=== PATIENT | female | born 1955 | race Two or more races ===

== ENCOUNTER 2017-07-13 15:07 | Emergency (ER) | payer MEDICARE, MEDICAID ==
[~2017-07-13] VITALS: Ht 160 cm; Wt 79.4 kg
[~2017-07-13 15:07] MED LIST: DIVA500T4 OR; DOCU100T; FAMO20TA58; HALO5TAB; IBUP800T24; LACO150T; LEVO150T68; LEVO175T31; OLAN20TA13; PREDNISOLONE AC 1% EYE DROP; QUET400T; TOPI25TA84 OR; ZOLP10TA; [UNRECOGNIZED DRUG - CODE]; [UNRECOGNIZED DRUG - OTHER]
[2017-07-13 15:17] VITALS: BP 157/86
[2017-07-13 16:13] LABS: Basophils # (auto) 0.1 uL; Eosinophils # (auto) 0.1 uL; Hematocrit 33.1 % (36.0-46.0); Hemoglobin 11.4 g/dL (12.2-16.2)
[2017-07-13 16:16] LABS: Eosinophils % (auto) 1.8 % (0.0-7.0); Lymphocytes % (auto) 19.6 % (10.0-50.0); Mean Corpuscular Hemoglobin 34.5 pg (28.0-32.0); Mean Corpuscular Hgb Conc. 34.4 g/dL (32.0-36.0); Mean Corpuscular Volume 100.3 fL (80.0-100.0); Monocytes # (auto) 0.4 uL; Monocytes % (auto) 8.7 % (0.0-12.0); Neutrophils # (auto) 3.5 uL; Neutrophils % (auto) 68.9 % (37.0-80.0); Nucleated Red Blood Cells % 0.4 %; Platelet Count (auto) 132 10^3/uL (140-450); Red Cell Distribution Width 13.1 % (11.8-14.3); White Blood Cell 5.1 10^3/uL (4.4-10.8)
[2017-07-13 16:26] LABS: Albumin 2.9 g/dL (3.4-5.0); Anion Gap 9 (5-15); Blood Urea Nitrogen 14 mg/dL (7-18); Carbon Dioxide 22 mmol/L (21-32); Chloride 100 mmol/L (98-107); GFR African American 110 mL/min; GFR Non-African American 91 mL/min; Glucose 155 mg/dL (74-106); Potassium 3.8 mmol/L (3.5-5.1); Sodium 131 mmol/L (136-145)
[2017-07-13 16:31] LABS: Alanine Aminotransferase 24 U/L (13-56); Alkaline Phosphatase 106 U/L (45-117); Aspartate Aminotransferase 21 U/L (15-37); Bilirubin, Total 0.2 mg/dL (0.2-1.0); Total Protein 6.6 g/dL (6.4-8.2)
== END 2017-07-13 17:18 | disposition left against medical advice (07) ==
LOC: ER 15:15
DX: R53.1 Weakness (principal); Z53.21 Procedure and treatment not carried out due to patient leaving prior to being seen by health care provider
CPT/HCPCS: 36415; 80053; 84484; 85025; 93005

== ENCOUNTER 2017-07-16 08:41 | Emergency (ER) | payer MEDICARE, MEDICAID ==
[~2017-07-16] VITALS: Ht 160 cm; Wt 79.4 kg
[2017-07-16 09:14] VITALS: BP 104/67
== END 2017-07-16 09:33 | disposition left against medical advice (07) ==
LOC: ER 08:41
DX: R03.0 Elevated blood-pressure reading, without diagnosis of hypertension (principal); Z53.21 Procedure and treatment not carried out due to patient leaving prior to being seen by health care provider

== ENCOUNTER 2022-05-02 10:37 | Inpatient (IN) | payer MEDICARE, MEDICAID ==
[~2022-05-02] VITALS: Ht 160 cm; Wt 81.4 kg
[~2022-05-02 10:37] MED LIST changes: -DOCU100T; +DOCU100T23; -IBUP800T24; +IBUP800T27; -LACO150T; +LACO150T PO; +LEV150T; -LEVO150T68; -LEVO175T31; +LEVO175T66; +OLAN20TA; -OLAN20TA13; -QUET400T; +QUET400T PO
[2022-05-02 11:22] LABS: Basophils # (auto) 0 10 ^3/uL (0-0.2); Basophils % (auto) 0.2 % (0.0-2.0); Eosinophils # (auto) 0.1 10 ^3/uL (0-0.8); Eosinophils % (auto) 0.8 % (0.0-7.0); Hematocrit 35.2 % (36.0-46.0); Hemoglobin 12.1 g/dL (12.2-16.2); Lymphocytes # (auto) 0.3 10 ^3/uL (0.4-5.4); Mean Corpuscular Hemoglobin 33.6 pg (28.0-32.0); Mean Corpuscular Hgb Conc. 34.4 g/dL (32.0-36.0); Mean Corpuscular Volume 97.6 fL (80.0-100.0); Monocytes # (auto) 0.3 10 ^3/uL (0-1.3); Monocytes % (auto) 3.8 % (0.0-12.0); Neutrophils # (auto) 6.2 10 ^3/uL (1.6-8.6); Neutrophils % (auto) 90.2 % (37.0-80.0); Red Blood Cells 3.61 10^6/uL (4.0-5.20); Red Cell Distribution Width 13.2 % (11.8-14.3); White Blood Cell 6.8 10^3/uL (4.4-10.8)
[2022-05-02 11:40] LABS: Albumin 2.8 g/dL (3.4-5.0); Calcium 8.1 mg/dL (8.5-10.1); Magnesium 2.1 mg/dL (1.6-2.6); Potassium 3.8 mmol/L (3.5-5.1)
[2022-05-02 11:44] LABS: Bilirubin, Total 0.4 mg/dL (0.2-1.0); Total Protein 6.4 g/dL (6.4-8.2)
[2022-05-02] MEDS ORDERED: IOHEXOL 300 MG/ML 100ML BOTTLE IJ ONE (16:43)
[2022-05-02] MEDS: SODIUM CHLORIDE 0.9% 1,000 ML IV SCH (17:32)
[2022-05-02] MEDS ORDERED: NITROGLYCERIN 0.4 MG SL TAB SL PRN (17:45)
[2022-05-02] MEDS ORDERED: MORPHINE SULFATE INJ 2 MG/ml SYRG IV PRN (17:45)
[2022-05-02] MEDS ORDERED: ONDANSETRON HCL 4 MG/2 ML VIAL IV PRN (17:45)
[2022-05-02] MEDS ORDERED: DEXTROSE (50%) 50ML SYRG IV PRN (18:15)
[2022-05-02 18:37] LABS: Cholesterol 127 mg/dL (< 200); HDL Cholesterol 58 mg/dL (40-59); LDL Cholesterol 60 mg/dL (< 100); Triglycerides 85 mg/dL (< 150)
[2022-05-02] MEDS: ACCU-CHEK COMFORT CURVE STRIP VI SCH (23:02)
[2022-05-02] MEDS: metroNIDAZOLE 500MG/100ML 100 ML IV SCH (23:02)
[2022-05-02] MEDS: PANTOPRAZOLE 40 MG/10 ML VIAL INJ IV SCH (23:02)
[2022-05-02] MEDS: InsuLIN REG 1unit/0.01ml Soln (100units/ml) SC SCH (23:03)
[2022-05-02 23:44] VITALS: BP 139/61
[2022-05-03 00:37] VITALS: BP 139/61
[2022-05-03] MEDS: SODIUM CHLORIDE 0.9% 1,000 ML IV SCH ×2 (02:41→09:36)
[2022-05-03 04:40] VITALS: BP 153/67
[2022-05-03] MEDS: ACCU-CHEK COMFORT CURVE STRIP VI SCH ×4 (05:05→23:31)
[2022-05-03] MEDS: InsuLIN REG 1unit/0.01ml Soln (100units/ml) SC SCH ×4 (05:05→23:31)
[2022-05-03 06:03] LABS: Basophils # (auto) 0 10 ^3/uL (0-0.2); Basophils % (auto) 0.3 % (0.0-2.0); Eosinophils # (auto) 0 10 ^3/uL (0-0.8); Hemoglobin 11.3 g/dL (12.2-16.2); Lymphocytes % (auto) 6.8 % (10.0-50.0); Mean Corpuscular Hemoglobin 33.7 pg (28.0-32.0); Mean Corpuscular Hgb Conc. 35.2 g/dL (32.0-36.0); Mean Corpuscular Volume 95.9 fL (80.0-100.0); Monocytes % (auto) 6.8 % (0.0-12.0); Neutrophils # (auto) 12.7 10 ^3/uL (1.6-8.6); Neutrophils % (auto) 86.1 % (37.0-80.0); Red Blood Cells 3.34 10^6/uL (4.0-5.20); Red Cell Distribution Width 13.3 % (11.8-14.3); White Blood Cell 14.8 10^3/uL (4.4-10.8)
[2022-05-03] MEDS: metroNIDAZOLE 500MG/100ML 100 ML IV SCH ×3 (06:27→21:21)
[2022-05-03 09:00] VITALS: BP 150/70
[2022-05-03] MEDS: PANTOPRAZOLE 40 MG/10 ML VIAL INJ IV SCH (09:36)
[2022-05-03] MEDS ORDERED: cefTRIAXone 1GM/50ML D5W 50 ML IV ONE (11:00)
[2022-05-03] MEDS ORDERED: LEVOTHYROXINE SODIUM 25 MCG TAB PO ONE ×2 (11:00→11:30)
[2022-05-03] MEDS ORDERED: LEVOTHYROXINE SODIUM 112 MCG TAB PO ONE (11:30)
[2022-05-03] MEDS ORDERED: TOPI100T68 PO (12:29)
[2022-05-03] MEDS ORDERED: OXCA600T3 PO (12:29)
[2022-05-03] MEDS ORDERED: CHOL20007 PO (12:49)
[2022-05-03] MEDS ORDERED: RISP3TAB41 PO (12:49)
[2022-05-03] MEDS ORDERED: SODIGRA31 PO (12:49)
[2022-05-03] MEDS ORDERED: MAX5OPS OP (12:49)
[2022-05-03] MEDS ORDERED: APIX2.5T PO (12:49)
[2022-05-03] MEDS ORDERED: NETA1DRO OP (12:49)
[2022-05-03] MEDS ORDERED: LEVO25TA6 PO (12:49)
[2022-05-03] MEDS ORDERED: OMEP20TA PO (12:49)
[2022-05-03] MEDS ORDERED: MONT-8 PO (12:49)
[2022-05-03] MEDS ORDERED: FERR-20 PO (12:49)
[2022-05-03] MEDS ORDERED: BRIM1SOL (12:49)
[2022-05-03] MEDS ORDERED: LORA-483 PO (12:49)
[2022-05-03] MEDS ORDERED: ARTISOL13 EACHEYE (12:49)
[2022-05-03] MEDS ORDERED: TRAZ-181 PO (12:49)
[2022-05-03] MEDS ORDERED: DORZ2SOL18 EACHEYE (12:49)
[2022-05-03] MEDS ORDERED: MULTTAB75 PO (12:49)
[2022-05-03] MEDS ORDERED: FLUT0.05 NAS (12:49)
[2022-05-03] MEDS: TOPIRAMATE 25 MG TAB PO SCH ×2 (12:51→21:19)
[2022-05-03 13:00] VITALS: BP 135/58
[2022-05-03 16:44] VITALS: BP 140/66
[2022-05-03 16:51] LABS: Urine Bacteria FEW /hpf (None Seen); Urine Blood 2+ /uL (Negative); Urine Mucus FEW (None Seen); Urine Specific Gravity 1.019 (1.001-1.035); Urine WBC 54 /hpf (0 - 5)
[2022-05-03] MEDS: QUEtiapine FUMARATE 100 MG TAB PO SCH (21:17)
[2022-05-03 22:00] VITALS: BP 134/53
[2022-05-04 05:00] VITALS: BP 115/52
[2022-05-04] MEDS: metroNIDAZOLE 500MG/100ML 100 ML IV SCH ×3 (06:00→21:33)
[2022-05-04] MEDS: InsuLIN REG 1unit/0.01ml Soln (100units/ml) SC SCH ×4 (06:00→23:52)
[2022-05-04] MEDS: ACCU-CHEK COMFORT CURVE STRIP VI SCH ×4 (06:00→23:52)
[2022-05-04] MEDS: LEVOTHYROXINE SODIUM 112 MCG TAB PO SCH (06:40)
[2022-05-04] MEDS: LEVOTHYROXINE SODIUM 25 MCG TAB PO SCH (06:40)
[2022-05-04] MEDS ORDERED: LEVOTHYROXINE SODIUM 25 MCG TAB PO SCH ×2 (07:00→10:00)
[2022-05-04] MEDS: SODIUM CHLORIDE 0.9% 1,000 ML IV SCH ×4 (08:03→19:45)
[2022-05-04] MEDS: cefTRIAXone 1GM/50ML D5W 50 ML IV SCH (09:10)
[2022-05-04] MEDS: TOPIRAMATE 25 MG TAB PO SCH ×2 (09:11→21:34)
[2022-05-04] MEDS: PANTOPRAZOLE 40 MG TAB PO SCH (09:11)
[2022-05-04 09:20] VITALS: BP 137/69
[2022-05-04] MEDS ORDERED: VANCOMYCIN PER PHARMACY 0 MG IV SCH (09:30)
[2022-05-04] MEDS ORDERED: VANCOMYCIN 1GM/250ML 250 ML IV ONE (10:00)
[2022-05-04 12:37] VITALS: BP 131/80
[2022-05-04 16:42] VITALS: BP 133/56
[2022-05-04] MEDS: QUEtiapine FUMARATE 100 MG TAB PO SCH (21:34)
[2022-05-04 22:00] VITALS: BP 144/71
[2022-05-05] MEDS: VANCOMYCIN 1GM/250ML 250 ML IV SCH ×2 (01:10→17:20)
[2022-05-05 05:00] VITALS: BP 143/66
[2022-05-05 05:26] LABS: Basophils # (auto) 0 10 ^3/uL (0-0.2); Hemoglobin 9.4 g/dL (12.2-16.2); Red Cell Distribution Width 13.3 % (11.8-14.3)
[2022-05-05 05:46] LABS: Basophils % (auto) 0.4 % (0.0-2.0); Eosinophils # (auto) 0.1 10 ^3/uL (0-0.8); Eosinophils % (auto) 1.7 % (0.0-7.0); Hematocrit 26.1 % (36.0-46.0); Lymphocytes # (auto) 0.8 10 ^3/uL (0.4-5.4); Lymphocytes % (auto) 9.7 % (10.0-50.0); Mean Corpuscular Hemoglobin 34.9 pg (28.0-32.0); Monocytes # (auto) 0.7 10 ^3/uL (0-1.3); Monocytes % (auto) 7.8 % (0.0-12.0); Neutrophils # (auto) 6.8 10 ^3/uL (1.6-8.6); Neutrophils % (auto) 80.4 % (37.0-80.0); White Blood Cell 8.4 10^3/uL (4.4-10.8)
[2022-05-05] MEDS: InsuLIN REG 1unit/0.01ml Soln (100units/ml) SC SCH ×4 (05:58→23:26)
[2022-05-05] MEDS: ACCU-CHEK COMFORT CURVE STRIP VI SCH ×4 (05:58→23:25)
[2022-05-05] MEDS: metroNIDAZOLE 500MG/100ML 100 ML IV SCH ×3 (05:58→21:25)
[2022-05-05] MEDS: LEVOTHYROXINE SODIUM 112 MCG TAB PO SCH (06:03)
[2022-05-05] MEDS: LEVOTHYROXINE SODIUM 25 MCG TAB PO SCH (06:03)
[2022-05-05 07:44] VITALS: BP 98/44
[2022-05-05 09:00] VITALS: BP 98/44
[2022-05-05] MEDS: cefTRIAXone 1GM/50ML D5W 50 ML IV SCH (09:17)
[2022-05-05] MEDS: PANTOPRAZOLE 40 MG TAB PO SCH (09:18)
[2022-05-05] MEDS: TOPIRAMATE 25 MG TAB PO SCH ×2 (09:18→21:24)
[2022-05-05] MEDS: SODIUM CHLORIDE 0.9% 1,000 ML IV SCH (09:34)
[2022-05-05 13:00] VITALS: BP 136/70
[2022-05-05 16:57] VITALS: BP 148/63
[2022-05-05] MEDS: QUEtiapine FUMARATE 100 MG TAB PO SCH (21:24)
[2022-05-05 22:00] VITALS: BP 137/87
[2022-05-06] MEDS: SODIUM CHLORIDE 0.9% 1,000 ML IV SCH ×2 (00:31→10:00)
[2022-05-06 05:00] VITALS: BP 150/70
[2022-05-06] MEDS: ACCU-CHEK COMFORT CURVE STRIP VI SCH ×2 (05:57→11:46)
[2022-05-06] MEDS: InsuLIN REG 1unit/0.01ml Soln (100units/ml) SC SCH ×2 (05:57→11:46)
[2022-05-06] MEDS: metroNIDAZOLE 500MG/100ML 100 ML IV SCH (06:10)
[2022-05-06] MEDS: LEVOTHYROXINE SODIUM 112 MCG TAB PO SCH (06:10)
[2022-05-06] MEDS: LEVOTHYROXINE SODIUM 25 MCG TAB PO SCH (06:10)
[2022-05-06 08:10] VITALS: BP 152/76
[2022-05-06] MEDS: TOPIRAMATE 25 MG TAB PO SCH (09:17)
[2022-05-06] MEDS: cefTRIAXone 1GM/50ML D5W 50 ML IV SCH (09:17)
[2022-05-06] MEDS: PANTOPRAZOLE 40 MG TAB PO SCH (09:17)
[2022-05-06] MEDS: VANCOMYCIN 1GM/250ML 250 ML IV SCH ×2 (10:00→11:52)
[2022-05-06] MEDS ORDERED: CIPR-173 PO (10:08)
== END 2022-05-06 14:10 | disposition home or self-care (01) | DRG 871 ==
LOC: EDBD 10:37 → ER 10:37 → OVERFLOW 18:01 → WEST WING 20:51
PROVIDERS: ADMIT Registered Nurse; ATTEND Family Medicine
DX: A41.9 Sepsis, unspecified organism (principal); E43 Unspecified severe protein-calorie malnutrition; J18.9 Pneumonia, unspecified organism; K92.2 Gastrointestinal hemorrhage, unspecified; F02.83 Dementia in other diseases classified elsewhere, unspecified severity, with mood disturbance; N39.0 Urinary tract infection, site not specified; J81.1 Chronic pulmonary edema; D64.9 Anemia, unspecified; E11.9 Type 2 diabetes mellitus without complications; F20.9 Schizophrenia, unspecified; E03.9 Hypothyroidism, unspecified; E86.0 Dehydration; F32.A Depression, unspecified; G30.9 Alzheimer's disease, unspecified; Z20.822 Contact with and (suspected) exposure to COVID-19; F41.9 Anxiety disorder, unspecified; K21.9 Gastro-esophageal reflux disease without esophagitis; R56.9 Unspecified convulsions; Z68.31 Body mass index [BMI] 31.0-31.9, adult; Z88.8 Allergy status to other drugs, medicaments and biological substances; Z90.49 Acquired absence of other specified parts of digestive tract
CPT/HCPCS: 36415; 71045; 74177; 80053; 80061; 80202; 81001; 82270; 82565; 82962; 83036; 83735; 83880; 84484; 85025; 86850; 86900; 86901; 87040; 87077; 87086; 87186; 87426; 93005; 96360; C9113; G0378; J0696; J1815; J3490

== ENCOUNTER 2023-06-03 09:23 | Inpatient (IN) | payer MEDICARE, MEDICAID ==
[~2023-06-03] VITALS: Ht 165.1 cm; Wt 72.0 kg
[~2023-06-03 09:23] MED LIST changes: +APIX2.5T PO; +ARTISOL13 EACHEYE; +BRIM1SOL; +CHOL20007 PO; +CIPR-173 PO; +DIVA-93 OR; -DIVA500T4 OR; +DORZ2SOL18 EACHEYE; +FERR325T24 PO; +FLUT0.05 NAS; +IBUP-1456; -IBUP800T27; -LEVO175T66; +LEVO25TA6 PO; +LORA-483 PO; +MAX5OPS OP; +MONT-8 PO; +MULTTAB75 PO; +NETA1DRO OP; +OMEP20TA PO; +OXCA600T3 PO; +RISP3TAB41 PO; +SODIGRA31 PO; +TOPI100T68 PO; -TOPI25TA84 OR; +TRAZ-181 PO
[2023-06-03 10:49] LABS: Basophils # (auto) 0 10 ^3/uL (0-0.2); Eosinophils # (auto) 0 10 ^3/uL (0-0.8); Monocytes # (auto) 0.6 10 ^3/uL (0-1.3); Neutrophils # (auto) 3.6 10 ^3/uL (1.6-8.6)
[2023-06-03 10:52] LABS: Basophils % (auto) 0.3 % (0.0-2.0); Eosinophils % (auto) 0.2 % (0.0-7.0); Hematocrit 34.9 % (36.0-46.0); Hemoglobin 11.5 g/dL (12.2-16.2); Lymphocytes # (auto) 0.5 10 ^3/uL (0.4-5.4); Lymphocytes % (auto) 9.8 % (10.0-50.0); Mean Corpuscular Hemoglobin 33.7 pg (28.0-32.0); Mean Corpuscular Hgb Conc. 33.1 g/dL (32.0-36.0); Monocytes % (auto) 12.2 % (0.0-12.0); Neutrophils % (auto) 77.5 % (37.0-80.0); Red Blood Cells 3.42 10^6/uL (4.0-5.20); Red Cell Distribution Width 13.5 % (11.8-14.3); White Blood Cell 4.6 10^3/uL (4.4-10.8)
[2023-06-03 11:03] LABS: Alanine Aminotransferase 21 U/L (7-40); Alkaline Phosphatase 64 U/L (46-116); Anion Gap 10 (5-15); Aspartate Aminotransferase 28 U/L (13-40); BUN/Creatinine Ratio 24.5 (10.0-20.0); Blood Urea Nitrogen 24 mg/dL (9-23); Calcium 8.3 mg/dL (8.5-10.1); Carbon Dioxide 20 mmol/L (20-30); Chloride 104 mmol/L (98-107); Glucose 115 mg/dL (74-106); Potassium 3.9 mmol/L (3.5-5.1); Sodium 134 mmol/L (136-145)
[2023-06-03 11:04] LABS: Albumin 3.4 g/dL (3.2-4.8); Bilirubin, Total 0.2 mg/dL (0.2-1.0); Total Protein 5.8 g/dL (5.7-8.2)
[2023-06-03] MEDS ORDERED: DOCUSATE SOD 100 MG CAP PO PRN (12:30)
[2023-06-03] MEDS ORDERED: ACETAMINOPHEN 325 MG TAB PO PRN (12:30)
[2023-06-03] MEDS ORDERED: ONDANSETRON HCL 4 MG/2 ML VIAL IV PRN (12:30)
[2023-06-03] MEDS: SODIUM CHLORIDE 0.9% 1,000 ML IV SCH (15:34)
[2023-06-03] MEDS ORDERED: MORPHINE SULFATE INJ 2 MG/ml SYRG IV PRN (16:45)
[2023-06-03] MEDS ORDERED: NITROGLYCERIN 0.4 MG SL TAB SL PRN (16:45)
[2023-06-03 19:43] LABS: Amphetamine Screen, Urine Neg (NEGATIVE); Barbiturate Scree,Urine Neg (NEGATIVE); Benzodiazephine Screen, Urine Neg (NEGATIVE); Cannabinoid Screen, Urine Neg (NEGATIVE); Cocaine Screen, Urine Neg (NEGATIVE); Opiate Scree,Urine Neg (NEGATIVE); Phencyclidine Screen, Urine Neg (NEGATIVE)
[2023-06-03 19:58] LABS: Urine Amorphous Crystal FEW /hpf (None Seen); Urine Bacteria MOD /hpf (None Seen); Urine WBC 3797 /hpf (0 - 5); Urine WBC Clumps PRESENT /hpf (None Seen)
[2023-06-03 20:05] LABS: Urine Blood 50 /uL (Negative); Urine Clarity CLOUDY (Clear); Urine Color Yellow (Yellow); Urine Protein, UAD 2+ (Negative); Urine Urobilinogen Normal (Negative)
[2023-06-03] MEDS: APIXABAN 2.5 MG TAB PO SCH (23:28)
[2023-06-04] MEDS: SODIUM CHLORIDE 0.9% 1,000 ML IV SCH ×2 (05:10→21:50)
[2023-06-04 06:35] VITALS: PULSE 80; RESP 14; O2SAT 97
[2023-06-04] MEDS: LEVOTHYROXINE SODIUM 25 MCG TAB PO SCH (07:03)
[2023-06-04 07:34] LABS: Basophils # (auto) 0 10 ^3/uL (0-0.2); Eosinophils # (auto) 0 10 ^3/uL (0-0.8); Monocytes # (auto) 0.5 10 ^3/uL (0-1.3); Nucleated Red Blood Cells % 0.1 %; Red Cell Distribution Width 14.1 % (11.8-14.3)
[2023-06-04 07:36] LABS: Alanine Aminotransferase 19 U/L (7-40); Albumin 3.6 g/dL (3.2-4.8); Alkaline Phosphatase 67 U/L (46-116); Anion Gap 7 (5-15); Aspartate Aminotransferase 30 U/L (13-40); BUN/Creatinine Ratio 22.4 (10.0-20.0); Blood Urea Nitrogen 17 mg/dL (9-23); Calcium 8.3 mg/dL (8.7-10.4); Carbon Dioxide 21 mmol/L (20-30); Chloride 106 mmol/L (98-107); Glucose 104 mg/dL (74-106); Potassium 3.8 mmol/L (3.5-5.1); Sodium 134 mmol/L (136-145)
[2023-06-04 07:37] LABS: Basophils % (auto) 0.8 % (0.0-2.0); Bilirubin, Total 0.3 mg/dL (0.2-1.0); Eosinophils % (auto) 0.5 % (0.0-7.0); Hematocrit 36.3 % (36.0-46.0); Lymphocytes # (auto) 0.8 10 ^3/uL (0.4-5.4); Mean Corpuscular Hemoglobin 34.1 pg (28.0-32.0); Mean Corpuscular Volume 103.3 fL (80.0-100.0); Monocytes % (auto) 16.6 % (0.0-12.0); Neutrophils # (auto) 1.7 10 ^3/uL (1.6-8.6); Neutrophils % (auto) 55.1 % (37.0-80.0); Red Blood Cells 3.51 10^6/uL (4.0-5.20); Total Protein 6.4 g/dL (5.7-8.2); White Blood Cell 3.1 10^3/uL (4.4-10.8)
[2023-06-04 07:56] VITALS: PULSE 80; RESP 12; O2SAT 97
[2023-06-04] MEDS: APIXABAN 2.5 MG TAB PO SCH ×2 (10:22→21:55)
[2023-06-04] MEDS: FAMOTIDINE (10MG/ML) 2ML VL IV SCH (10:22)
[2023-06-04] MEDS ORDERED: LEV100T PO (12:08)
[2023-06-04] MEDS ORDERED: OMEP20TA PO (12:08)
[2023-06-04] MEDS ORDERED: CYAN500L4 PO (12:08)
[2023-06-04] MEDS ORDERED: levoFLOXacin 500MG 100 ML IV ONE (14:00)
[2023-06-04] MEDS: HYDROcodone-ACET 5/325MG TAB PO PRN (16:36)
[2023-06-04 19:30] VITALS: PULSE 92; RESP 18; O2SAT 97
[2023-06-05] MEDS: LEVOTHYROXINE SODIUM 25 MCG TAB PO SCH (06:30)
[2023-06-05 06:40] LABS: Basophils # (auto) 0 10 ^3/uL (0-0.2); Basophils % (auto) 0.5 % (0.0-2.0); Eosinophils # (auto) 0 10 ^3/uL (0-0.8); Eosinophils % (auto) 0.2 % (0.0-7.0); Hematocrit 33.7 % (36.0-46.0); Hemoglobin 11.5 g/dL (12.2-16.2); Lymphocytes # (auto) 0.7 10 ^3/uL (0.4-5.4); Mean Corpuscular Hemoglobin 33.5 pg (28.0-32.0); Mean Corpuscular Volume 98.5 fL (80.0-100.0); Monocytes # (auto) 0.4 10 ^3/uL (0-1.3); Neutrophils % (auto) 64.3 % (37.0-80.0); Nucleated Red Blood Cells % 0.1 %; Red Blood Cells 3.42 10^6/uL (4.0-5.20); Red Cell Distribution Width 13.3 % (11.8-14.3); White Blood Cell 3.1 10^3/uL (4.4-10.8)
[2023-06-05 06:47] LABS: Albumin 3.5 g/dL (3.2-4.8); Alkaline Phosphatase 106 U/L (46-116); Aspartate Aminotransferase 186 U/L (13-40); Calcium 8.2 mg/dL (8.7-10.4); Carbon Dioxide 22 mmol/L (20-30); Chloride 105 mmol/L (98-107); Glucose 111 mg/dL (74-106); Magnesium 1.6 mg/dL (1.6-2.6); Potassium 3.8 mmol/L (3.5-5.1)
[2023-06-05 06:48] LABS: Anion Gap 7 (5-15); BUN/Creatinine Ratio 19.7 (10.0-20.0); Bilirubin, Total 0.4 mg/dL (0.2-1.0); Blood Urea Nitrogen 12 mg/dL (9-23); Sodium 134 mmol/L (136-145); Total Protein 6.2 g/dL (5.7-8.2)
[2023-06-05 06:49] LABS: Alanine Aminotransferase 101 U/L (7-40)
[2023-06-05] MEDS ORDERED: LORazepam 2MG/ML-1ML VIAL IV PRN (09:30)
[2023-06-05 10:28] LABS: Folate (Folic Acid) 19.36 ng/mL (>5.38)
[2023-06-05 10:29] LABS: Free T4 (Free Thyroxine) 0.71 ng/dL (0.89-1.76)
[2023-06-05] MEDS: levoFLOXacin 500MG 100 ML IV SCH (11:11)
[2023-06-05] MEDS: APIXABAN 2.5 MG TAB PO SCH ×2 (11:11→22:00)
[2023-06-05] MEDS: FAMOTIDINE (10MG/ML) 2ML VL IV SCH (11:11)
[2023-06-05] MEDS: SODIUM CHLORIDE 0.9% 1,000 ML IV SCH (17:02)
[2023-06-05] MEDS: HYDROcodone-ACET 5/325MG TAB PO PRN (17:04)
[2023-06-05 23:32] VITALS: BP 136/51; PULSE 67; RESP 15; TEMP 98.8; O2SAT 97
[2023-06-06] VITALS (7 sets, daily range): BP systolic 131–151; BP diastolic 71–88; PULSE 59–87; RESP 16–20; TEMP 98.5–99; O2SAT 97–100
[2023-06-06] MEDS: LEVOTHYROXINE SODIUM 25 MCG TAB PO SCH (06:27)
[2023-06-06] MEDS: SODIUM CHLORIDE 0.9% 1,000 ML IV SCH (06:45)
[2023-06-06] MEDS: levoFLOXacin 500MG 100 ML IV SCH (10:45)
[2023-06-06] MEDS: FAMOTIDINE (10MG/ML) 2ML VL IV SCH (10:46)
[2023-06-06] MEDS: APIXABAN 2.5 MG TAB PO SCH (10:46)
[2023-06-06] MEDS ORDERED: CIPR-273 PO (13:29)
== END 2023-06-06 19:30 | disposition home health service (06) | DRG 71 ==
LOC: ER 09:23 → EDBD 09:23 → TELE 16:42 → TELE-WESTW 06-05 23:32
PROVIDERS: ADMIT Nurse Practitioner Family; ATTEND Internal Medicine Geriatric Medicine
DX: G93.41 Metabolic encephalopathy (principal); F03.94 Unspecified dementia, unspecified severity, with anxiety; N39.0 Urinary tract infection, site not specified; G40.909 Epilepsy, unspecified, not intractable, without status epilepticus; E86.0 Dehydration; E03.9 Hypothyroidism, unspecified; D50.9 Iron deficiency anemia, unspecified; F20.9 Schizophrenia, unspecified; F32.A Depression, unspecified; J45.909 Unspecified asthma, uncomplicated; K21.9 Gastro-esophageal reflux disease without esophagitis; Z79.899 Other long term (current) drug therapy; Z88.0 Allergy status to penicillin; Z90.49 Acquired absence of other specified parts of digestive tract
CPT/HCPCS: 36415; 70450; 71045; 80053; 80164; 80307; 81001; 82607; 82746; 83605; 83735; 83880; 84439; 84443; 84484; 85025; 87040; 87081; 93005; 96360; 97163; G0378; J1956; J3490

== ENCOUNTER 2023-06-07 11:11 | Inpatient (IN) | payer MEDICARE, MEDICAID ==
[~2023-06-07] VITALS: Ht 152.4 cm; Wt 67.7 kg
[~2023-06-07 11:11] MED LIST changes: -CIPR-173 PO; +CIPR-273 PO; +CYAN500L4 PO; -DOCU100T23; -FAMO20TA58; -HALO5TAB; -IBUP-1456; +LEV100T PO; -LEV150T; -LEVO25TA6 PO; -OLAN20TA; -OXCA600T3 PO; -PREDNISOLONE AC 1% EYE DROP; -RISP3TAB41 PO; -ZOLP10TA; -[UNRECOGNIZED DRUG - CODE]; -[UNRECOGNIZED DRUG - OTHER]
[2023-06-07 12:15] LABS: Basophils # (auto) 0 10 ^3/uL (0-0.2); Eosinophils # (auto) 0 10 ^3/uL (0-0.8); Lymphocytes # (auto) 0.6 10 ^3/uL (0.4-5.4); Monocytes # (auto) 0.6 10 ^3/uL (0-1.3); Monocytes % (auto) 7.4 % (0.0-12.0)
[2023-06-07 12:18] LABS: Basophils % (auto) 0.3 % (0.0-2.0); Hematocrit 36.8 % (36.0-46.0); Hemoglobin 12.3 g/dL (12.2-16.2); Lymphocytes % (auto) 7.8 % (10.0-50.0); Mean Corpuscular Hemoglobin 33.5 pg (28.0-32.0); Mean Corpuscular Hgb Conc. 33.3 g/dL (32.0-36.0); Mean Corpuscular Volume 100.7 fL (80.0-100.0); Neutrophils # (auto) 6.7 10 ^3/uL (1.6-8.6); Neutrophils % (auto) 84.5 % (37.0-80.0); Nucleated Red Blood Cells % 0.1 %; Red Blood Cells 3.66 10^6/uL (4.0-5.20); Red Cell Distribution Width 13.5 % (11.8-14.3); White Blood Cell 7.9 10^3/uL (4.4-10.8)
[2023-06-07 12:39] LABS: INR 1.01 (0.9-1.15); Partial Thromboplastin Time 28.5 SEC (24.5-34.5); Prothrombin Time 10.6 sec (9.3-11.8)
[2023-06-07 12:49] LABS: Alanine Aminotransferase 70 U/L (7-40); Alkaline Phosphatase 92 U/L (46-116); Anion Gap 9 (5-15); Aspartate Aminotransferase 66 U/L (13-40); BUN/Creatinine Ratio 17.4 (10.0-20.0); Blood Urea Nitrogen 21 mg/dL (9-23); Calcium 8.6 mg/dL (8.5-10.1); Carbon Dioxide 22 mmol/L (20-30); Chloride 106 mmol/L (98-107); Glucose 119 mg/dL (74-106); Potassium 3.6 mmol/L (3.5-5.1); Sodium 137 mmol/L (136-145)
[2023-06-07 12:50] LABS: Albumin 3.5 g/dL (3.2-4.8); Bilirubin, Total 0.3 mg/dL (0.2-1.0)
[2023-06-07 13:27] LABS: Lactic Acid w/Reflex 3.2 mmol/L (0.4-2.0)
[2023-06-07 13:48] LABS: Lipase 80 U/L (12-53)
[2023-06-07 15:41] LABS: Magnesium 1.7 mg/dL (1.6-2.6)
[2023-06-07] MEDS ORDERED: LACTULOSE 20Gm/30ML SOLN PO ONE (15:45)
[2023-06-07] MEDS ORDERED: ONDANSETRON HCL 4 MG/2 ML VIAL IV PRN (16:45)
[2023-06-07] MEDS ORDERED: DOCUSATE SOD 100 MG CAP PO PRN (16:45)
[2023-06-07] MEDS ORDERED: ACETAMINOPHEN 325 MG TAB PO PRN (16:45)
[2023-06-07] MEDS ORDERED: ALBUTEROL MEDNEB 2.5 mg/3ml NEB NEB PRN (17:15)
[2023-06-07] MEDS: SODIUM CHLORIDE 0.9% 1,000 ML IV SCH ×2 (17:15→19:15)
[2023-06-07] MEDS ORDERED: IPRATROPIUM BROM 0.5 MG/2.5ML INH SOL NEB PRN (17:15)
[2023-06-07 19:30] VITALS: PULSE 70; RESP 14; O2SAT 95
[2023-06-07 20:41] VITALS: BP 119/69; PULSE 74; RESP 25; O2SAT 94
[2023-06-07] MEDS: CIPROFLOXACIN 400MG/200ML 200 ML IV SCH (21:19)
[2023-06-08] MEDS: SODIUM CHLORIDE 0.9% 1,000 ML IV SCH ×2 (03:35→13:50)
[2023-06-08 03:54] LABS: Urine Bacteria NONE SEEN /hpf (None Seen); Urine Blood 3+ /uL (Negative); Urine Clarity HAZY (Clear); Urine Color Yellow (Yellow); Urine Protein, UAD 1+ (Negative); Urine Specific Gravity 1.015 (1.001-1.035); Urine Urobilinogen Normal (Negative); Urine WBC 83 /hpf (0 - 5)
[2023-06-08 05:00] VITALS: BP 143/96; PULSE 72; RESP 20; TEMP 98.4; O2SAT 98
[2023-06-08 07:43] LABS: Basophils # (auto) 0 10 ^3/uL (0-0.2); Basophils % (auto) 0.2 % (0.0-2.0); Eosinophils # (auto) 0 10 ^3/uL (0-0.8); Eosinophils % (auto) 0.1 % (0.0-7.0); Hemoglobin 11.6 g/dL (12.2-16.2); Lymphocytes # (auto) 1.4 10 ^3/uL (0.4-5.4); Mean Corpuscular Hemoglobin 34.1 pg (28.0-32.0); Mean Corpuscular Hgb Conc. 33.3 g/dL (32.0-36.0); Mean Corpuscular Volume 102.4 fL (80.0-100.0); Monocytes # (auto) 0.6 10 ^3/uL (0-1.3)
[2023-06-08 07:47] LABS: Hematocrit 34.9 % (36.0-46.0); Lymphocytes % (auto) 21.2 % (10.0-50.0); Monocytes % (auto) 9.3 % (0.0-12.0); Neutrophils # (auto) 4.4 10 ^3/uL (1.6-8.6); Neutrophils % (auto) 69.2 % (37.0-80.0); Nucleated Red Blood Cells % 0.2 %; Red Blood Cells 3.41 10^6/uL (4.0-5.20); Red Cell Distribution Width 13.6 % (11.8-14.3); White Blood Cell 6.4 10^3/uL (4.4-10.8)
[2023-06-08 08:00] VITALS: BP 124/65; PULSE 69; RESP 20; TEMP 98.7; O2SAT 96
[2023-06-08 08:19] LABS: Alanine Aminotransferase 55 U/L (7-40); Albumin 3.3 g/dL (3.2-4.8); Alkaline Phosphatase 75 U/L (46-116); Anion Gap 9 (5-15); Aspartate Aminotransferase 75 U/L (13-40); BUN/Creatinine Ratio 14.9 (10.0-20.0); Bilirubin, Total 0.4 mg/dL (0.2-1.0); Blood Urea Nitrogen 13 mg/dL (9-23); Carbon Dioxide 20 mmol/L (20-30); Chloride 108 mmol/L (98-107); Glucose 86 mg/dL (74-106); Potassium 3.6 mmol/L (3.5-5.1); Sodium 137 mmol/L (136-145); Total Protein 5.9 g/dL (5.7-8.2)
[2023-06-08] MEDS ORDERED: OXCA600T3 PO (09:39)
[2023-06-08] MEDS ORDERED: FAMO-12 PO (09:39)
[2023-06-08] MEDS: PANTOPRAZOLE 40 MG TAB PO SCH (09:55)
[2023-06-08] MEDS: LACTULOSE 20Gm/30ML SOLN PO SCH (09:55)
[2023-06-08] MEDS: CIPROFLOXACIN 400MG/200ML 200 ML IV SCH (13:49)
[2023-06-08 14:36] VITALS: O2SAT 97
[2023-06-08 14:37] VITALS: O2SAT 97
[2023-06-08] MEDS ORDERED: LORazepam 2MG/ML-1ML VIAL IV PRN (14:45)
[2023-06-08 17:00] VITALS: BP 118/79; PULSE 70; RESP 20; TEMP 98; O2SAT 96
[2023-06-08] MEDS: QUEtiapine FUMARATE 100 MG TAB PO SCH (21:36)
[2023-06-08] MEDS: OXcarbazepine 300 MG TAB PO SCH (21:36)
[2023-06-08 22:00] VITALS: BP 128/66; PULSE 61; RESP 20; TEMP 98.7; O2SAT 91
[2023-06-09] VITALS (8 sets, daily range): BP systolic 110–154; BP diastolic 61–75; PULSE 58–70; RESP 16–21; TEMP 97.8–98.7; O2SAT 93–100
[2023-06-09] MEDS: SODIUM CHLORIDE 0.9% 1,000 ML IV SCH ×3 (00:10→22:04)
[2023-06-09] MEDS: OXcarbazepine 300 MG TAB PO SCH ×2 (10:12→21:42)
[2023-06-09] MEDS: PANTOPRAZOLE 40 MG TAB PO SCH (10:12)
[2023-06-09] MEDS: CIPROFLOXACIN 400MG/200ML 200 ML IV SCH (10:12)
[2023-06-09] MEDS: LACTULOSE 20Gm/30ML SOLN PO SCH (10:12)
[2023-06-09] MEDS: LORazepam 0.5 MG TAB PO PRN (16:11)
[2023-06-09] MEDS: QUEtiapine FUMARATE 100 MG TAB PO SCH (21:42)
[2023-06-10] MEDS: CIPROFLOXACIN 400MG/200ML 200 ML IV SCH (01:55)
[2023-06-10 03:35] VITALS: BP 127/72; PULSE 67; RESP 20; TEMP 97.5; O2SAT 99
[2023-06-10] MEDS: LORazepam 0.5 MG TAB PO PRN (05:56)
[2023-06-10] MEDS: SODIUM CHLORIDE 0.9% 1,000 ML IV SCH ×2 (06:45→10:27)
[2023-06-10 08:10] VITALS: O2SAT 95
[2023-06-10 08:55] VITALS: BP 121/61; PULSE 61; RESP 19; TEMP 97.5; O2SAT 96
[2023-06-10] MEDS: LACTULOSE 20Gm/30ML SOLN PO SCH (10:22)
[2023-06-10] MEDS: PANTOPRAZOLE 40 MG TAB PO SCH (10:23)
[2023-06-10] MEDS: OXcarbazepine 300 MG TAB PO SCH (10:23)
[2023-06-10] MEDS ORDERED: CIPR-173 PO (11:04)
[2023-06-10 12:55] VITALS: BP 123/67; PULSE 60; RESP 20; TEMP 97.6; O2SAT 95
== END 2023-06-10 15:00 | disposition home or self-care (01) | DRG 640 ==
LOC: EDUNIT# 11:11 → ER 11:11 → EDBD 11:11 → OVERFLOW 16:46 → EAST 06-08 02:05
PROVIDERS: ADMIT Nurse Practitioner Family; ATTEND Family Medicine
DX: E86.0 Dehydration (principal); G93.41 Metabolic encephalopathy; E72.20 Disorder of urea cycle metabolism, unspecified; N39.0 Urinary tract infection, site not specified; F03.93 Unspecified dementia, unspecified severity, with mood disturbance; E87.20 Acidosis, unspecified; R74.01 Elevation of levels of liver transaminase levels; J45.909 Unspecified asthma, uncomplicated; K21.9 Gastro-esophageal reflux disease without esophagitis; F32.A Depression, unspecified; F20.9 Schizophrenia, unspecified; E03.9 Hypothyroidism, unspecified; G40.909 Epilepsy, unspecified, not intractable, without status epilepticus; Z88.0 Allergy status to penicillin
CPT/HCPCS: 36415; 70450; 71045; 74176; 76705; 76856; 80053; 81001; 82140; 83605; 83690; 83735; 83880; 84484; 85025; 85610; 85730; 86850; 86900; 86901; 87040; 87081; 87086; 93005; 93970; G0378

== ENCOUNTER 2023-10-29 20:02 | Inpatient (IN) | payer MEDICARE, MEDICAID ==
[~2023-10-29] VITALS: Ht 160 cm; Wt 85.2 kg
[~2023-10-29 20:02] MED LIST changes: +CIPR-173 PO; -DIVA-93 OR; +DIVA-93 PO; +FAMO-12 PO; +OXCA600T3 PO
[2023-10-29] MEDS: SODIUM CHLORIDE 0.9% 1,000 ML IV ONE ×3 (20:41→23:17)
[2023-10-29] MEDS: cefTRIAXone 1GM/50ML D5W 50 ML IV ONE (20:41)
[2023-10-29 20:55] LABS: Basophils # (auto) 0 10 ^3/uL (0-0.2); Eosinophils # (auto) 0 10 ^3/uL (0-0.8); Eosinophils % (auto) 0.4 % (0.0-7.0); Lymphocytes # (auto) 0.1 10 ^3/uL (0.4-5.4); Monocytes # (auto) 0 10 ^3/uL (0-1.3); Neutrophils # (auto) 3.2 10 ^3/uL (1.6-8.6); Red Cell Distribution Width 14.2 % (11.8-14.3); White Blood Cell 3.3 10^3/uL (4.4-10.8)
[2023-10-29 20:57] LABS: Basophils % (auto) 0.1 % (0.0-2.0); Hematocrit 33.6 % (36.0-46.0); Hemoglobin 10.8 g/dL (12.2-16.2); Lymphocytes % (auto) 3.2 % (10.0-50.0); Mean Corpuscular Hemoglobin 34.3 pg (28.0-32.0); Mean Corpuscular Hgb Conc. 32.1 g/dL (32.0-36.0); Monocytes % (auto) 0.5 % (0.0-12.0); Neutrophils % (auto) 95.8 % (37.0-80.0); Nucleated Red Blood Cells % 0.2 %; Red Blood Cells 3.14 10^6/uL (4.0-5.20)
[2023-10-29 21:01] LABS: Alanine Aminotransferase 29 U/L (7-40); Albumin 2.9 g/dL (3.2-4.8); Alkaline Phosphatase 102 U/L (46-116); Anion Gap 15 (5-15); Aspartate Aminotransferase 47 U/L (13-40); BUN/Creatinine Ratio 14.2 (10.0-20.0); Bilirubin, Total 0.6 mg/dL (0.2-1.0); Blood Alcohol 4.1 mg/dL (<10); Blood Urea Nitrogen 15 mg/dL (9-23); Calcium 7.7 mg/dL (8.5-10.1); Carbon Dioxide 13 mmol/L (20-30); Chloride 103 mmol/L (98-107); Glucose 135 mg/dL (74-106); Potassium 3.4 mmol/L (3.5-5.1); Sodium 131 mmol/L (136-145); Total Protein 5.1 g/dL (5.7-8.2)
[2023-10-29 21:03] LABS: Lactic Acid w/Reflex 5.6 mmol/L (0.4-2.0)
[2023-10-29 21:10] LABS: INR 1.25 (0.9-1.15); Partial Thromboplastin Time 32.5 SEC (24.5-34.5); Prothrombin Time 12.9 sec (9.3-11.8)
[2023-10-29 21:17] LABS: Magnesium 1.4 mg/dL (1.6-2.6)
[2023-10-29] MEDS ORDERED: ONDANSETRON HCL 4 MG/2 ML VIAL IV PRN (23:15)
[2023-10-29] MEDS: MAGNESIUM SULFATE 1GM/100ML 100 ML IV SCH (23:15)
[2023-10-29] MEDS ORDERED: NITROGLYCERIN 0.4 MG SL TAB SL PRN (23:15)
[2023-10-29] MEDS ORDERED: MORPHINE SULFATE INJ 2 MG/ml SYRG IV PRN (23:15)
[2023-10-30] VITALS (9 sets, daily range): BP systolic 66–115; BP diastolic 41–62; PULSE 83–114; RESP 18–33; TEMP 98.8; O2SAT 88–100
[2023-10-30] MEDS: ACETAMINOPHEN 325 MG TAB PO PRN (00:30)
[2023-10-30 01:36] LABS: Amphetamine Screen, Urine Neg (NEGATIVE); Barbiturate Scree,Urine Neg (NEGATIVE); Benzodiazephine Screen, Urine Neg (NEGATIVE); Cannabinoid Screen, Urine Neg (NEGATIVE); Cocaine Screen, Urine Neg (NEGATIVE); Opiate Scree,Urine Neg (NEGATIVE); Phencyclidine Screen, Urine Neg (NEGATIVE)
[2023-10-30 01:58] LABS: Urine Bacteria MANY /hpf (None Seen); Urine Blood 3+ /uL (Negative); Urine Clarity Ex.Turbid (Clear); Urine Color Light-Orange (Yellow); Urine Mucus FEW (None Seen); Urine Protein, UAD 2+ (Negative); Urine Specific Gravity 1.009 (1.001-1.035); Urine Urobilinogen Normal (Negative); Urine WBC 651 /hpf (0 - 5); Urine WBC Clumps PRESENT /hpf (None Seen); Urine pH 6.5 (5.0-9.0)
[2023-10-30] MEDS: IBUPROFEN 600 MG TAB PO ONE (03:20)
[2023-10-30] MEDS: PHENYLEPHRINE IV 250 ML IV SCH (05:25)
[2023-10-30] MEDS: ALBUMIN 5% 250 ML IV ONE (06:00)
[2023-10-30] MEDS: LACTATED RINGER'S 1,000 ML IV ONE (06:33)
[2023-10-30] MEDS: LEVOTHYROXINE SODIUM 100 MCG TAB PO SCH (07:00)
[2023-10-30] MEDS: NOREPINEPHRINE 8 MG/250ML KIT 250 ML IV SCH ×2 (07:15→18:11)
[2023-10-30 07:48] LABS: Alanine Aminotransferase 92 U/L (7-40); Albumin 2.9 g/dL (3.2-4.8); Alkaline Phosphatase 70 U/L (46-116); Anion Gap 12 (5-15); Aspartate Aminotransferase 134 U/L (13-40); BUN/Creatinine Ratio 13.3 (10.0-20.0); Bilirubin, Total 0.4 mg/dL (0.2-1.0); Blood Urea Nitrogen 19 mg/dL (9-23); Calcium 7.4 mg/dL (8.5-10.1); Carbon Dioxide 15 mmol/L (20-30); Chloride 105 mmol/L (98-107); Glucose 121 mg/dL (74-106); Potassium 3.6 mmol/L (3.5-5.1); Sodium 132 mmol/L (136-145); Total Protein 5.1 g/dL (5.7-8.2)
[2023-10-30 08:01] LABS: Hematocrit 33.4 % (36.0-46.0); Hemoglobin 11.3 g/dL (12.2-16.2); Mean Corpuscular Hemoglobin 33.9 pg (28.0-32.0); Mean Corpuscular Hgb Conc. 33.8 g/dL (32.0-36.0); Mean Corpuscular Volume 100.3 fL (80.0-100.0); Red Blood Cells 3.33 10^6/uL (4.0-5.20); Red Cell Distribution Width 13.2 % (11.8-14.3); White Blood Cell 16.9 10^3/uL (4.4-10.8)
[2023-10-30 08:18] LABS: Basophils % (manual) 0 (0.0-2.0); Blast Cells 0; Eosinophils % (manual) 0 (0-7); Metamyelocytes % 0; Myelocytes % 0; Promyelocytes % 0; Reactive Lymphocytes 0
[2023-10-30] MEDS: cefTRIAXone 1GM/50ML D5W 50 ML IV SCH (09:00)
[2023-10-30 09:15] LABS: Band Neutrophils % (manual) 36; Lymphocytes % (manual) 2 (10.0-50.0); Monocytes % (manual) 7 (0-12); Platelet Estimate Decreased
[2023-10-30 09:16] LABS: Macrocytosis Slight
[2023-10-30] MEDS: VANCOMYCIN PER PHARMACY 0 MG IV SCH (10:00)
[2023-10-30 10:23] LABS: Lactic Acid w/Reflex 2.9 mmol/L (0.4-2.0)
[2023-10-30] MEDS: CEFEPIME 1GM/ 50ML 50 ML IV SCH (10:25)
[2023-10-30] MEDS: MAGNESIUM SULFATE 1GM/100ML 100 ML IV ONE (10:25)
[2023-10-30] MEDS: APIXABAN 2.5 MG TAB PO SCH (10:26)
[2023-10-30] MEDS: LACTATED RINGER'S 1,000 ML IV SCH ×2 (10:26→15:29)
[2023-10-30] MEDS: risperiDONE 1 MG TAB PO SCH (10:26)
[2023-10-30] MEDS: TOPIRAMATE 100 MG TAB PO SCH (10:26)
[2023-10-30] MEDS: OXcarbazepine 300 MG TAB PO SCH (10:26)
[2023-10-30] MEDS: VANCOMYCIN 1GM/200ML 200 ML IV ONE (10:28)
[2023-10-30 10:33] LABS: Chloride 107 mmol/L (98-107); Potassium 3.7 mmol/L (3.5-5.1); Sodium 133 mmol/L (136-145)
[2023-10-30 10:34] LABS: Anion Gap 11 (5-15); Calcium 7.7 mg/dL (8.7-10.4); Carbon Dioxide 15 mmol/L (20-30)
[2023-10-30 10:39] LABS: BUN/Creatinine Ratio 17.5 (10.0-20.0); Blood Urea Nitrogen 24 mg/dL (9-23); Glucose 120 mg/dL (74-106)
[2023-10-30] MEDS ORDERED: PHENYLEPHRINE IV 250 ML IV SCH (12:00)
[2023-10-30] MEDS ORDERED: VASOPRESSIN 40 UNITS in D5W 5% 198 ML IV SCH (13:45)
[2023-10-30] MEDS: KETAMINE 50mg/ML 10ml Vial 10 ML ONE (13:59)
[2023-10-30] MEDS: KETAMINE 50mg/ML 1ml syringe IV ONE (14:00)
[2023-10-30] MEDS: VASOPRESSIN 20 UNITS in SODIUM CHL 0.9% 99 ML IV SCH (14:00)
[2023-10-30] MEDS: ETOMIDATE (2MG/ML) 20ML VIAL IV ONE (14:40)
[2023-10-30] MEDS: ROCURONIUM 10MG/ML 10ML VIAL IV ONE (14:40)
[2023-10-30] MEDS: MIDAZOLAM DRIP 50 mg/50mL 50 ML IV SCH (15:00)
[2023-10-30] MEDS: MIDAZOLAM DRIP 50 mg/50mL 50 ML IV ONE (15:26)
[2023-10-30] MEDS ORDERED: VANCOMYCIN PER PHARMACY 0 MG IV SCH (15:30)
[2023-10-30 15:37] LABS: % Iron Saturation 4.8 % (15-50)
[2023-10-30 15:51] LABS: Basophils # (auto) 0 10 ^3/uL (0-0.2); Basophils % (auto) 0.1 % (0.0-2.0); Eosinophils # (auto) 0 10 ^3/uL (0-0.8); Hematocrit 27.2 % (36.0-46.0); Hemoglobin 8.9 g/dL (12.2-16.2); Lymphocytes # (auto) 0.4 10 ^3/uL (0.4-5.4); Lymphocytes % (auto) 1.8 % (10.0-50.0); Mean Corpuscular Hgb Conc. 32.6 g/dL (32.0-36.0); Mean Corpuscular Volume 104.3 fL (80.0-100.0); Monocytes # (auto) 0.5 10 ^3/uL (0-1.3); Monocytes % (auto) 2.2 % (0.0-12.0); Neutrophils # (auto) 20.2 10 ^3/uL (1.6-8.6); Neutrophils % (auto) 95.9 % (37.0-80.0); Platelet Count (auto) 100 10^3/uL (140-450); Red Blood Cells 2.61 10^6/uL (4.0-5.20); Red Cell Distribution Width 13.7 % (11.8-14.3); White Blood Cell 21.1 10^3/uL (4.4-10.8)
[2023-10-30 16:15] LABS: Base Excess -14.5 mmol/L (-2.0-2.0)
[2023-10-30] MEDS: PANTOPRAZOLE 40 MG/10 ML VIAL INJ IV ONE (16:33)
[2023-10-30 16:47] LABS: INR 1.48 (0.9-1.15); Prothrombin Time 15.1 sec (9.3-11.8)
[2023-10-30] MEDS: fentaNYL Drip 2500mCg/250mlNS 250 ML IV SCH (17:25)
[2023-10-30] MEDS: PROPOFOL 100 ML IV SCH (17:25)
[2023-10-30] MEDS: PANTOPRAZOLE 80 MG in SODIUM CHL 0.9% 100 ML IV ONE (17:27)
[2023-10-30] MEDS: MEROPENEM 1GM IVPB 50 ML IV ONE (17:34)
[2023-10-30] MEDS: OCTREOTIDE ACETATE 100 MCG in SODIUM CHL 0.9% 50 ML IV ONE (17:54)
[2023-10-30] MEDS: PANTOPRAZOLE 40mg/50ML NS AE 50 ML IV SCH (18:22)
[2023-10-30] MEDS: CIPROFLOXACIN 0.3%OPTH(EYE) SOL 5ML LEFTEYE SCH (18:46)
[2023-10-30] MEDS: OCTREOTIDE ACETATE 500 MCG in SODIUM CHL 0.9% 99 ML IV SCH (18:46)
[2023-10-30 20:24] LABS: White Blood Cell 4.6 10^3/uL (4.4-10.8)
[2023-10-30 20:28] LABS: Hematocrit 36.4 % (36.0-46.0); Hemoglobin 11.8 g/dL (12.2-16.2); Mean Corpuscular Hemoglobin 32.8 pg (28.0-32.0); Mean Corpuscular Hgb Conc. 32.6 g/dL (32.0-36.0); Mean Corpuscular Volume 100.8 fL (80.0-100.0); Red Blood Cells 3.61 10^6/uL (4.0-5.20); Red Cell Distribution Width 15.9 % (11.8-14.3)
[2023-10-30 20:39] LABS: Basophils % (manual) 0 (0.0-2.0); Blast Cells 0; Eosinophils % (manual) 0 (0-7); Metamyelocytes % 0; Myelocytes % 0; Promyelocytes % 0; Reactive Lymphocytes 0
[2023-10-30] MEDS: MEROPENEM 1GM IVPB 50 ML IV SCH (22:00)
[2023-10-30] MEDS ORDERED: PANTOPRAZOLE 40 MG/10 ML VIAL INJ IV SCH (22:00)
[2023-10-30] MEDS ORDERED: MONTELUKAST SODIUM 10 MG TAB PO SCH (22:00)
[2023-10-30 22:46] LABS: Band Neutrophils % (manual) 20; Lymphocytes % (manual) 17 (10.0-50.0); Monocytes % (manual) 25 (0-12)
[2023-10-30 22:47] LABS: Anisocytosis Slight; Platelet Estimate Decreased
[2023-10-30] MEDS: PHENYLEPHRINE INJ 80 MG in SODIUM CHL 0.9% 242 ML IV SCH (23:40)
[2023-10-31] VITALS (44 sets, daily range): BP systolic 72–165; BP diastolic 36–95; PULSE 88–108; RESP 19–39; TEMP 98.6–100; O2SAT 88–100
[2023-10-31 00:54] LABS: Hematocrit 34.3 % (36.0-46.0); Hemoglobin 11.6 g/dL (12.2-16.2)
[2023-10-31 05:14] LABS: Hematocrit 34.8 % (36.0-46.0); Hemoglobin 11.4 g/dL (12.2-16.2); Mean Corpuscular Hemoglobin 32.8 pg (28.0-32.0); Mean Corpuscular Hgb Conc. 32.9 g/dL (32.0-36.0); Mean Corpuscular Volume 99.6 fL (80.0-100.0); Red Blood Cells 3.49 10^6/uL (4.0-5.20); Red Cell Distribution Width 15.3 % (11.8-14.3); White Blood Cell 2.4 10^3/uL (4.4-10.8)
[2023-10-31 05:24] LABS: Basophils % (manual) 0 (0.0-2.0); Blast Cells 0; Promyelocytes % 0
[2023-10-31 05:30] LABS: Alanine Aminotransferase 67 U/L (7-40); Albumin 2.3 g/dL (3.2-4.8); Alkaline Phosphatase 56 U/L (46-116); Anion Gap 10 (5-15); Aspartate Aminotransferase 102 U/L (13-40); BUN/Creatinine Ratio 16.3 (10.0-20.0); Bilirubin, Total 0.7 mg/dL (0.2-1.0); Blood Urea Nitrogen 28 mg/dL (9-23); Calcium 6.4 mg/dL (8.7-10.4); Carbon Dioxide 13 mmol/L (20-30); Chloride 107 mmol/L (98-107); Glucose 177 mg/dL (74-106); Potassium 4.1 mmol/L (3.5-5.1); Sodium 130 mmol/L (136-145); Total Protein 4.1 g/dL (5.7-8.2)
[2023-10-31 08:29] LABS: Base Excess -14.5 mmol/L (-2.0-2.0)
[2023-10-31 08:35] LABS: Lactic Acid w/Reflex 2.5 mmol/L (0.4-2.0)
[2023-10-31] MEDS: CALCIUM GLUC 1,000mg/50ml-NS 50 ML IV ONE (08:45)
[2023-10-31 08:58] LABS: Band Neutrophils % (manual) 23; Eosinophils % (manual) 1 (0-7); Lymphocytes % (manual) 39 (10.0-50.0); Metamyelocytes % 8; Monocytes % (manual) 5 (0-12); Myelocytes % 3; Platelet Estimate Decreased; Reactive Lymphocytes 1
[2023-10-31 09:42] LABS: Creatine Kinase IFCC 1256 U/L (34-145)
[2023-10-31 09:50] LABS: CRP High Sensitivity > 20.00 mg/dL (<1.0)
[2023-10-31 10:24] LABS: COVID19 ANTIGEN SOFIA FIA NEGATIVE (NEGATIVE); Rapid Influenza A Negative (Negative); Rapid Influenza B Negative (Negative)
[2023-10-31 10:28] LABS: Magnesium 1.9 mg/dL (1.6-2.6)
[2023-10-31] MEDS: VANCOMYCIN 750mg/150ml 150 ML IV SCH (11:19)
[2023-10-31 11:43] LABS: Free T3 1.06 pg/mL (2.3-4.2); Free T4 (Free Thyroxine) 0.69 ng/dL (0.89-1.76)
[2023-10-31] MEDS: EPINEPHrine HCL 250 ML IV SCH (14:38)
[2023-10-31] MEDS ORDERED: RISP3TAB44 PO (15:42)
[2023-10-31] MEDS: BUMETANIDE 2.5mg/10ml (0.25 mg/ml) INJ IV ONE (15:42)
[2023-10-31] MEDS: SODIUM BICARB 50mEq/50ml Vial 50 ML in SOD CHL 0.45% 1,000 ML IV SCH (16:33)
[2023-10-31] MEDS: NOREPINEPHRINE BITARTRATE 32 MG in SODIUM CHL 0.9% 218 ML IV SCH (22:35)
[2023-11-01] VITALS (124 sets, daily range): BP systolic 74–173; BP diastolic 35–70; PULSE 63–93; RESP 18–26; TEMP 96.1–98.4; O2SAT 85–100
[2023-11-01 01:24] LABS: Base Excess -13.5 mmol/L (-2.0-2.0)
[2023-11-01 03:50] LABS: Hemoglobin 12.1 g/dL (12.2-16.2)
[2023-11-01 03:52] LABS: Hematocrit 36.7 % (36.0-46.0); Mean Corpuscular Hemoglobin 32.3 pg (28.0-32.0); Red Blood Cells 3.75 10^6/uL (4.0-5.20); Red Cell Distribution Width 15.4 % (11.8-14.3); White Blood Cell 18.8 10^3/uL (4.4-10.8)
[2023-11-01 04:00] LABS: Alanine Aminotransferase 59 U/L (7-40); Albumin 2.5 g/dL (3.2-4.8); Alkaline Phosphatase 75 U/L (46-116); Anion Gap 9 (5-15); Aspartate Aminotransferase 131 U/L (13-40); Calcium 6.5 mg/dL (8.7-10.4); Carbon Dioxide 15 mmol/L (20-30); Chloride 106 mmol/L (98-107); Glucose 103 mg/dL (74-106); Magnesium 1.8 mg/dL (1.6-2.6); Potassium 4.9 mmol/L (3.5-5.1); Sodium 130 mmol/L (136-145)
[2023-11-01 04:01] LABS: Bilirubin, Total 0.5 mg/dL (0.2-1.0); Total Protein 4.4 g/dL (5.7-8.2)
[2023-11-01 04:29] LABS: Blood Urea Nitrogen 42 mg/dL (9-23)
[2023-11-01 04:36] LABS: Basophils % (manual) 0 (0.0-2.0); Eosinophils % (manual) 0 (0-7); Myelocytes % 0; Promyelocytes % 0; Reactive Lymphocytes 0
[2023-11-01 04:52] LABS: Lactic Acid w/Reflex 2.6 mmol/L (0.4-2.0)
[2023-11-01] MEDS: PHENYLEPHRINE HCL 10 MG/ML VL ONE (06:10)
[2023-11-01] MEDS: LEVOTHYROXINE SODIUM 25 MCG TAB NG SCH (07:00)
[2023-11-01] MEDS: LEVOTHYROXINE SODIUM 112 MCG TAB NG SCH (07:00)
[2023-11-01 07:47] LABS: Base Excess -14.3 mmol/L (-2.0-2.0)
[2023-11-01] MEDS: CALCIUM GLUC 1,000mg/50ml-NS 50 ML IV SCH (08:03)
[2023-11-01] MEDS: SODIUM BICARB 8.4% 50Meq/50ml SYR Vial IV ONE (08:03)
[2023-11-01] MEDS: SODIUM BICARB 50mEq/50ml Vial 150 ML in D5W 5% 1,000 ML IV SCH (08:04)
[2023-11-01 08:42] LABS: Band Neutrophils % (manual) 53; Blast Cells 2; Lymphocytes % (manual) 3 (10.0-50.0); Metamyelocytes % 13; Monocytes % (manual) 2 (0-12); Platelet Estimate Decreased
[2023-11-01] MEDS: LEVOTHYROXINE SODIUM 100 MCG/5 ML INJ IV SCH (09:38)
[2023-11-01] MEDS: BUMETANIDE 2.5mg/10ml (0.25 mg/ml) INJ IV ONE (09:39)
[2023-11-01 10:26] LABS: Creatinine, Urine 40.48 mg/dL (30.0-125.0)
[2023-11-01 10:51] LABS: INR 1.13 (0.9-1.15); Partial Thromboplastin Time 37.1 SEC (24.5-34.5); Prothrombin Time 11.9 sec (9.3-11.8)
[2023-11-01] MEDS: VANCOMYCIN 750mg/150ml 150 ML IV ONE (11:44)
[2023-11-01] MEDS: VASOPRESSIN 20 UNITS in SODIUM CHL 0.9% 99 ML IV SCH (11:45)
[2023-11-01] MEDS ORDERED: VANCOMYCIN PER PHARMACY 0 MG IV SCH (11:45)
[2023-11-01 15:19] LABS: Base Excess -9.6 mmol/L (-2.0-2.0)
[2023-11-01] MEDS: MEROPENEM 1GM IVPB 50 ML IV SCH (16:53)
[2023-11-01] MEDS ORDERED: CLINIMIX PER PHARMACY 0 ML IV SCH (19:45)
[2023-11-01] MEDS ORDERED: AMINO ACID INFUSION IN D10W 1,000 ML IV SCH (20:00)
[2023-11-01] MEDS: AMINO ACID INFUSION IN D5W 1,000 ML IV NR (21:25)
[2023-11-01] MEDS: InsuLIN REG 1unit/0.01ml Soln (100units/ml) SC SCH (23:47)
[2023-11-01] MEDS: ACCU-CHEK COMFORT CURVE STRIP VI SCH (23:49)
[2023-11-02] VITALS (112 sets, daily range): BP systolic 92–134; BP diastolic 42–65; PULSE 58–93; RESP 22–39; TEMP 97.2–98.6; O2SAT 94–100
[2023-11-02 04:40] LABS: Alanine Aminotransferase 39 U/L (7-40); Alkaline Phosphatase 79 U/L (46-116); Anion Gap 10 (5-15); BUN/Creatinine Ratio 16.5 (10.0-20.0); Blood Urea Nitrogen 37 mg/dL (9-23); Calcium 6.3 mg/dL (8.7-10.4); Carbon Dioxide 19 mmol/L (20-30); Chloride 103 mmol/L (98-107); Glucose 154 mg/dL (74-106); Magnesium 1.6 mg/dL (1.6-2.6); Potassium 3.7 mmol/L (3.5-5.1); Sodium 132 mmol/L (136-145)
[2023-11-02 04:41] LABS: Aspartate Aminotransferase 92 U/L (13-40); Lactic Acid w/Reflex 2.8 mmol/L (0.4-2.0)
[2023-11-02 04:42] LABS: Bilirubin, Total 0.5 mg/dL (0.2-1.0); Total Protein 3.7 g/dL (5.7-8.2)
[2023-11-02 04:54] LABS: Basophils # (auto) 0 10 ^3/uL (0-0.2); Eosinophils # (auto) 0.1 10 ^3/uL (0-0.8); Eosinophils % (auto) 0.6 % (0.0-7.0); Red Blood Cells 3.13 10^6/uL (4.0-5.20); White Blood Cell 15.9 10^3/uL (4.4-10.8)
[2023-11-02 05:02] LABS: Basophils % (auto) 0.1 % (0.0-2.0); Hematocrit 30.7 % (36.0-46.0); Hemoglobin 10.4 g/dL (12.2-16.2); Lymphocytes # (auto) 0.6 10 ^3/uL (0.4-5.4); Lymphocytes % (auto) 4.1 % (10.0-50.0); Mean Corpuscular Hemoglobin 33.1 pg (28.0-32.0); Mean Corpuscular Hgb Conc. 33.8 g/dL (32.0-36.0); Mean Corpuscular Volume 97.9 fL (80.0-100.0); Monocytes # (auto) 0.1 10 ^3/uL (0-1.3); Monocytes % (auto) 0.9 % (0.0-12.0); Neutrophils % (auto) 94.3 % (37.0-80.0); Nucleated Red Blood Cells % 0.1 %; Red Cell Distribution Width 15.1 % (11.8-14.3)
[2023-11-02 05:05] LABS: Phosphorus 5.2 mg/dL (2.4-5.1)
[2023-11-02 06:42] LABS: Anisocytosis Slight; Large Platelets FEW; Platelet Estimate Markedly Decreased
[2023-11-02] MEDS: PANTOPRAZOLE 40 MG/10 ML VIAL INJ IV SCH (08:06)
[2023-11-02] MEDS: BUMETANIDE 2.5mg/10ml (0.25 mg/ml) INJ IV ONE (09:44)
[2023-11-02] MEDS: MAGNESIUM SULFATE 1GM/100ML 100 ML IV ONE (15:15)
[2023-11-02] MEDS: CALCIUM GLUC 1,000mg/50ml-NS 50 ML IV ONE (15:36)
[2023-11-02] MEDS ORDERED: MORPHINE SULFATE INJ 2 MG/ml SYRG IV PRN (18:45)
[2023-11-02] MEDS: AMINO ACID INFUSION IN D5W 1,000 ML IV SCH (19:31)
[2023-11-03] VITALS (69 sets, daily range): BP systolic 66–157; BP diastolic 30–63; PULSE 51–96; RESP 11–26; TEMP 97.5–99.5; O2SAT 10–100
[2023-11-03 04:08] LABS: Alanine Aminotransferase 27 U/L (7-40); Alkaline Phosphatase 100 U/L (46-116); Anion Gap 11 (5-15); BUN/Creatinine Ratio 27.8 (10.0-20.0); Calcium 7.2 mg/dL (8.7-10.4); Carbon Dioxide 22 mmol/L (20-30); Chloride 102 mmol/L (98-107); Glucose 106 mg/dL (74-106); Magnesium 1.6 mg/dL (1.6-2.6); Potassium 2.9 mmol/L (3.5-5.1); Sodium 135 mmol/L (136-145)
[2023-11-03 04:09] LABS: Aspartate Aminotransferase 61 U/L (13-40); Bilirubin, Total 1.1 mg/dL (0.2-1.0); Total Protein 3.8 g/dL (5.7-8.2)
[2023-11-03 04:13] LABS: Blood Urea Nitrogen 55 mg/dL (9-23)
[2023-11-03 05:24] LABS: Phosphorus 3.9 mg/dL (2.4-5.1)
[2023-11-03] MEDS: POTASSIUM CHL 20MEQ/100ML 100 ML IV SCH (06:29)
[2023-11-03 07:42] LABS: Base Excess -2.6 mmol/L (-2.0-2.0)
[2023-11-03] MEDS: VANCOMYCIN 1GM/200ML 200 ML IV ONE (10:30)
[2023-11-03] MEDS: MAGNESIUM SULFATE 1GM/100ML 100 ML IV ONE (10:58)
[2023-11-03] MEDS: LORazepam 2MG/ML-1ML VIAL IV PRN (12:14)
[2023-11-03] MEDS ORDERED: MORPHINE SULFATE INJ 2 MG/ml SYRG IV PRN (16:00)
[2023-11-03] MEDS ORDERED: fentaNYL CITRATE 100 MCG/2 ML VL IV PRN (16:00)
== END 2023-11-03 17:10 | DRG 871 ==
LOC: EDBD 20:02 → ER 20:02 → TELE 23:17 → ICU WEST 10-31 20:56
PROVIDERS: ADMIT Internal Medicine Pulmonary Disease; ATTEND Internal Medicine Pulmonary Disease
PROC: 30243N1 Transfusion of Nonautologous Red Blood Cells into Central Vein, Percutaneous Approach (ICD-10-PCS; principal; 2023-10-30)
PROC: 5A1945Z Respiratory Ventilation, 24-96 Consecutive Hours (ICD-10-PCS; 2023-10-30)
PROC: 0BH17EZ Insertion of Endotracheal Airway into Trachea, Via Natural or Artificial Opening (ICD-10-PCS; 2023-10-30)
PROC: 06H033Z Insertion of Infusion Device into Inferior Vena Cava, Percutaneous Approach (ICD-10-PCS; 2023-10-30)
DX: A41.9 Sepsis, unspecified organism (principal); G93.41 Metabolic encephalopathy; R65.21 Severe sepsis with septic shock; I21.A1 Myocardial infarction type 2; J96.01 Acute respiratory failure with hypoxia; J69.0 Pneumonitis due to inhalation of food and vomit; J15.9 Unspecified bacterial pneumonia; J15.69 Pneumonia due to other Gram-negative bacteria; N17.0 Acute kidney failure with tubular necrosis; N39.0 Urinary tract infection, site not specified; E44.0 Moderate protein-calorie malnutrition; E87.29 Other acidosis; E87.1 Hypo-osmolality and hyponatremia; J45.909 Unspecified asthma, uncomplicated; Z20.822 Contact with and (suspected) exposure to COVID-19; D69.6 Thrombocytopenia, unspecified; F20.9 Schizophrenia, unspecified; G30.9 Alzheimer's disease, unspecified; F02.80 Dementia in other diseases classified elsewhere, unspecified severity, without behavioral disturbance, psychotic disturbance, mood disturbance, and anxiety; K21.9 Gastro-esophageal reflux disease without esophagitis; E87.6 Hypokalemia; E83.42 Hypomagnesemia; E03.9 Hypothyroidism, unspecified; Z88.0 Allergy status to penicillin; Z68.33 Body mass index [BMI] 33.0-33.9, adult; Z88.8 Allergy status to other drugs, medicaments and biological substances; D50.9 Iron deficiency anemia, unspecified
CPT/HCPCS: 36415; 36600; 70450; 71045; 76705; 80048; 80053; 80202; 80307; 80320; 81001; 82140; 82306; 82550; 82570; 82728; 82805; 82962; 83036; 83540; 83550; 83605; 83735; 83880; 84100; 84300; 84439; 84443; 84481; 84484; 85007; 85014; 85018; 85025; 85027; 85045; 85049; 85384; 85610; 85730; 86141; 86850; 86900; 86901; 86920; 87040; 87070; 87077; 87081; 87086; 87186; 87205; 87426; 87804; 93005; 93306; 94002; 94003; 96365; C9113; G0378; J0171; J2185; J2250; J3480; J3490; J7060